=== PATIENT | male | born 1990 | race African-American/Black ===

== ENCOUNTER 2021-03-30 09:18 | Observation (INO) ==
[2021-03-30 11:46] LABS: Basophils # 0.1 10*3/uL (0.0-0.2); Basophils % 0.3 % (0.0-0.8); Hematocrit 44.8 VOL% (42.0-52.0); Hemoglobin 14.2 GM/DL (14.0-18.0); Immature Granulocytes % 0.3 %; Immature Granulocytes Absolute 0.05 #; Lymphocytes # 1.1 10*3/uL (1.4-4.0); Lymphocytes % 6.2 % (21.2-54.2); Mean Corpuscular HGB Conc 31.7 GM/DL (32-36); Mean Corpuscular Volume 89.2 FL (87-102); Mean Platelet Volume 10.1 FL (9.6-12.0); Monocytes % 4.6 % (1.7-12.7); Neutrophils % 88.6 % (38.7-73.9); Platelet Count 551 T/CUMM (130-400); Red Blood Count 5.02 MC/CUMM (3.8-5.5); Red Cell Distribution Width 14.4 % (9.3-17.3); White Blood Count 18.5 T/CUMM (4-12)
[2021-03-30 11:57] LABS: Bilirubin,Urine Negative (Negative); Blood, Urine Negative (Negative); Glucose,Urine (UA) Negative (Negative); Ketones,Urine 5 mg/dL (Negative); Mucus,Urine Many /LPF (Occasional); Nitrite,Urine Negative (Negative); Protein,Urine 100 MG/DL; RBC,Urine 11 /HPF (0-4); Sperm,Urine Many /HPF (Negative); Urine Appearance Slightly Hazy (Clear); Urine Color Amber (Yellow); Urine Specific Gravity 1.033 (1.001-1.035)
[2021-03-30] MEDS ORDERED: SODIUM CHLORIDE 0.9% 1,000 ML IV STA (11:59)
[2021-03-30 12:05] LABS: Albumin 4.1 G/DL (3.4-5.0); Bilirubin,Total 0.6 MG/DL (0.2-1.0); Calcium 9.7 MG/DL (8.5-10.1); Potassium 4.1 MMOL/L (3.5-5.1); Total Protein 9.1 G/DL (6.4-8.2)
[2021-03-30 12:11] LABS: Barbiturates Screen,Urine Negative (Negative); Benzodiazepines Screen,Urine Negative (Negative); Cannabinoid Screen,Urine Negative (Negative); Opiate Screen,Urine Negative (Negative); Phencyclidine Screen,Urine Negative (Negative)
[2021-03-30] MEDS ORDERED: ACETAMINOPHEN 325 MG TABLET PO PRN (14:00)
[2021-03-30] MEDS ORDERED: GLUCAGON 1 MG VIAL IM PRN (14:00)
[2021-03-30] MEDS ORDERED: DEXTROSE 50% 25 GM/50 ML VIAL IV PRN (14:00)
[2021-03-30] MEDS ORDERED: CYPROHEPTADINE 4 MG TABLET PO PRN (14:06)
[2021-03-30] MEDS ORDERED: ONDANSETRON 4 MG/2 ML VIAL IV STA (14:07)
[2021-03-30] MEDS ORDERED: KETOROLAC 15 MG/1 ML VIAL IV PRN (14:09)
[2021-03-30] MEDS: ONDANSETRON 4 MG/2 ML VIAL IV PRN ×2 (16:32→21:51)
[2021-03-30] MEDS: SODIUM CHLORIDE 0.45% 1,000 ML IV SCH (16:32)
[2021-03-30] MEDS: ENOXAPARIN 40 MG/0.4 ML SYRINGE SUBCUT SCH (21:55)
[2021-03-31] MEDS: SODIUM CHLORIDE 0.45% 1,000 ML IV SCH ×3 (00:38→17:30)
[2021-03-31] MEDS: ONDANSETRON 4 MG/2 ML VIAL IV PRN ×2 (03:56→08:21)
[2021-03-31 05:38] LABS: Basophils # 0.1 10*3/uL (0.0-0.2); Basophils % 0.3 % (0.0-0.8); Eosinophils # 0.1 10*3/uL (0.0-0.87); Eosinophils % 0.5 % (0.00-10.9); Immature Granulocytes % 0.3 %; Immature Granulocytes Absolute 0.05 #; Lymphocytes # 2.2 10*3/uL (1.4-4.0); Lymphocytes % 14.6 % (21.2-54.2); Mean Corpuscular HGB Conc 32.2 GM/DL (32-36); Mean Corpuscular Volume 88.9 FL (87-102); Mean Platelet Volume 10.7 FL (9.6-12.0); Monocytes % 7.8 % (1.7-12.7); Neutrophils % 76.5 % (38.7-73.9); Red Blood Count 4.16 MC/CUMM (3.8-5.5); Red Cell Distribution Width 14.4 % (9.3-17.3); White Blood Count 14.7 T/CUMM (4-12)
[2021-03-31 05:46] LABS: Hemoglobin 11.9 GM/DL (14.0-18.0); Platelet Count 432 T/CUMM (130-400)
[2021-03-31 05:49] LABS: Calcium 8.7 MG/DL (8.5-10.1); Potassium 3.6 MMOL/L (3.5-5.1); Thyroid Stimulating Hormone 1.08 uIU/ml (0.358-3.74)
[2021-03-31 06:12] LABS: HIV Antigen/Antibody Result Nonreactive (Nonreactive)
[2021-03-31] MEDS ORDERED: PANTOPRAZOLE 40 MG TABLET PO SCH (09:00)
[2021-03-31] MEDS ORDERED: METOCLOPRAMIDE 10 MG/2 ML VIAL IV PRN (09:38)
[2021-03-31] MEDS ORDERED: PROMETHAZINE 25 MG/1 ML VIAL IM ONE (09:48)
[2021-03-31] MEDS: FAMOTIDINE 20 MG/2 ML VIAL IV SCH ×2 (10:23→22:27)
[2021-03-31] MEDS ORDERED: SODIUM PHOSPHATE ENEMA 133 ML BOTTLE RECTAL ONE (12:28)
[2021-03-31] MEDS: LUBIPROSTONE 24 MCG CAPSULE PO SCH ×2 (14:00→22:27)
[2021-03-31] MEDS: POLYETHYLENE GLYCOL POWDER 17 GM PACK PO SCH (22:26)
[2021-03-31] MEDS: DOCUSATE SODIUM 100 MG CAPSULE PO SCH (22:26)
[2021-03-31] MEDS: ENOXAPARIN 40 MG/0.4 ML SYRINGE SUBCUT SCH (22:27)
[2021-04-01] MEDS: SODIUM CHLORIDE 0.45% 1,000 ML IV SCH ×2 (01:17→09:03)
[2021-04-01 05:58] LABS: Basophils # 0.1 10*3/uL (0.0-0.2); Basophils % 0.7 % (0.0-0.8); Eosinophils # 0.2 10*3/uL (0.0-0.87); Eosinophils % 1.9 % (0.00-10.9); Hematocrit 33.9 VOL% (42.0-52.0); Hemoglobin 11.1 GM/DL (14.0-18.0); Immature Granulocytes % 0.3 %; Immature Granulocytes Absolute 0.03 #; Lymphocytes # 2.1 10*3/uL (1.4-4.0); Mean Corpuscular HGB Conc 32.7 GM/DL (32-36); Mean Corpuscular Volume 87.4 FL (87-102); Mean Platelet Volume 10.5 FL (9.6-12.0); Monocytes % 8.3 % (1.7-12.7); Neutrophils % 65.8 % (38.7-73.9); Platelet Count 381 T/CUMM (130-400); Red Blood Count 3.88 MC/CUMM (3.8-5.5); Red Cell Distribution Width 13.9 % (9.3-17.3); White Blood Count 9.2 T/CUMM (4-12)
[2021-04-01 06:19] LABS: Calcium 8.2 MG/DL (8.5-10.1); Potassium 3.1 MMOL/L (3.5-5.1)
[2021-04-01] MEDS: POLYETHYLENE GLYCOL POWDER 17 GM PACK PO SCH (09:08)
[2021-04-01] MEDS: DOCUSATE SODIUM 100 MG CAPSULE PO SCH (09:09)
[2021-04-01] MEDS: FAMOTIDINE 20 MG/2 ML VIAL IV SCH (09:09)
[2021-04-01] MEDS: LUBIPROSTONE 24 MCG CAPSULE PO SCH (09:10)
[2021-04-01] MEDS: POTASSIUM CHLORIDE RIDER 10 MEQ/100 ML PREMIX IV PRN ×2 (10:00→11:20)
[2021-04-01] MEDS ORDERED: POTASSIUM CHLORIDE 20 MEQ TABLET PO ONE (11:00)
[2021-04-01] MEDS ORDERED: DOCUSATE SODIUM 100 MG CAPSULE PO PRN (11:49)
[2021-04-01] MEDS ORDERED: POLYETHYLENE GLYCOL POWDER 17 GM PACK PO PRN (11:50)
[2021-04-01 11:51] VITALS: BP 136/91
[2021-04-02] MEDS ORDERED: LINACLOTIDE 145 MCG CAPSULE PO SCH (07:30)
[2021-04-02] MEDS ORDERED: POTASSIUM CHLORIDE 20 MEQ TABLET PO SCH (09:00)
== END 2021-04-01 13:31 | disposition home or self-care (01) ==
LOC: N.ED 09:18 → N.5E 09:18 → SUATTDRO 14:00 → N.5E 15:56
PROVIDERS: ADMIT Phlebology; ATTEND Hospitalist